=== PATIENT | female | born 2000 | race Caucasian/White ===

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

== ENCOUNTER 2020-02-27 10:18 | Outpatient (CLI) | payer OTHER | END 2020-02-27 10:34 | disposition home or self-care (01) | LOC: SONOGRAMA 10:18 → MAMO-SONO 10:45 | PROVIDERS: ATTEND General Practice | DX: E03.8 Other specified hypothyroidism (principal); E04.2 Nontoxic multinodular goiter ==

== ENCOUNTER 2020-12-27 09:54 | Outpatient (CLI) | payer OTHER | END 2020-12-27 10:05 | disposition home or self-care (01) | LOC: LAB 09:54 | DX: A49.3 Mycoplasma infection, unspecified site (principal); R50.9 Fever, unspecified; R05 Cough; J11.1 Influenza due to unidentified influenza virus with other respiratory manifestations; J11.00 Influenza due to unidentified influenza virus with unspecified type of pneumonia ==